=== PATIENT | female | born 2000 | race Hispanic/Latino ===

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

== ENCOUNTER 2021-03-19 20:47 | Emergency (ER) | payer OTHER ==
[2021-03-19] MEDS ORDERED: Ketorolac Tromethamine 30 MG/ML VIAL ONE (21:45)
[2021-03-19] MEDS ORDERED: Acetaminophen 500 MG TAB ONE ×2 (21:45→21:50)
== END 2021-03-19 22:02 | disposition home or self-care (01) ==
LOC: ERS 20:47
DX: M54.12 Radiculopathy, cervical region (principal)
CPT/HCPCS: 96372; 99283; J1885